=== PATIENT | male | born 1955 | race Caucasian/White ===

== ENCOUNTER 2020-04-16 13:56 | Emergency (ER) | payer BC ==
[~2020-04-16] VITALS: Ht 172.7 cm; Wt 73.9 kg
[2020-04-16 14:12] VITALS: BP 119/84; Ht 172.7 cm; Wt 73.9 kg
== END 2020-04-16 14:56 | disposition home or self-care (01) ==
LOC: ED 13:56
DX: H10.212 Acute toxic conjunctivitis, left eye (principal)